=== PATIENT | female | born 1935 | race Caucasian/White ===

== ENCOUNTER 2021-10-07 09:30 | Inpatient (IN) | payer OTHER ==
[2021-10-07] MEDS ORDERED: CLINDAMYCIN 600MG PREMIX IVPB 600 MG/50 ML BAG IVPB ONE ×2 (10:22→10:46)
[2021-10-07] MEDS ORDERED: ACETAMINOPHEN 1000 MG/100 ML VIAL IVPB ONE (10:28)
[2021-10-07 10:40] LABS: HEMATOCRIT 42.1 % (32.4-45.2); HEMOGLOBIN 14.2 GM/dL (10.7-15.3); MCH 30.1 pg (25.7-33.7); MCHC 33.7 g/dl (32.0-36.0); MEAN CELL VOLUME 89.3 fl (80-96); MEAN PLT VOLUME 9.8 fl (7.5-11.1); PLATELET COUNT 213 10^3/uL (134-434); RBC 4.72 M/mm3 (3.60-5.2); WHITE BLOOD COUNT 8.6 K/mm3 (4.0-10.0)
[2021-10-07 10:44] LABS: VENOUS BASE EXCESS -2.5 mmol/L (-2-2); VENOUS O2 SATURATION 72.6 % (70-80); VENOUS PCO2 38.6 mmHg (38-52); VENOUS PH 7.378 (7.310-7.410)
[2021-10-07] MEDS ORDERED: ACETAMINOPHEN INJECTION 100 ML IVPB ONE (10:45)
[2021-10-07 10:49] LABS: INR 1.1 (0.83-1.09); PROTHROMBIN TIME (PATIENT) 12.3 SEC (9.7-13.0)
[2021-10-07 10:52] LABS: ACTIVATED PTT 27.4 SECONDS (25.2-36.5)
[2021-10-07 11:08] LABS: CALCIUM 9.7 mg/dL (8.5-10.1)
[2021-10-07 11:09] LABS: ALBUMIN 4.1 g/dl (3.4-5.0); BLOOD UREA NITROGEN 30.3 mg/dL (7-18)
[2021-10-07 11:12] LABS: CREATININE 0.9 mg/dL (0.55-1.3)
[2021-10-07] MEDS ORDERED: SODIUM CHLORIDE 0.9% 500 ML INFUS.BAG IV ONE (11:12)
[2021-10-07 11:14] LABS: BILIRUBIN,TOTAL 0.8 mg/dL (0.2-1)
[2021-10-07 11:15] LABS: TOT PROT 7.3 g/dl (6.4-8.2)
[2021-10-07 11:25] LABS: LACTIC ACID 2.4 mmol/L (0.4-2.0)
[2021-10-07] MEDS ORDERED: CEFTRIAXONE 1,000 MG in DEXTROSE 5%-WATER - 50 ML IVPB ONE (11:27)
[2021-10-07] MEDS ORDERED: CEFTRIAXONE 1 GM/50 ML BAG ONE (11:34)
[2021-10-07] MEDS ORDERED: ACETAMINOPHEN 325 MG TABLET (FP) PO PRN (11:46)
[2021-10-07 12:54] LABS: EPI CELLS 7 /uL (0-25.1); HYALINE CASTS 2 /uL (0-3.1); URINE APPEARANCE CLEAR; URINE BACTERIA 2288 /uL (0-1359); URINE BILIRUBIN NEGATIVE (NEGATIVE); URINE COLOR YELLOW; URINE GLUCOSE (UA) NEGATIVE (NEGATIVE); URINE KETONE NEGATIVE (NEGATIVE); URINE LEUK ESTERASE TRACE (NEGATIVE); URINE NITRITE POSITIVE (NEGATIVE); URINE PROTEIN TRACE (NEGATIVE); URINE RBC 7 /uL (0-23.9); URINE UROBILINOGEN 0.2 mg/dL (0.2-1.0); URINE WBC 21 /uL (0-25.8)
[2021-10-07 13:33] LABS: ANISOCYTOSIS 0; MACROCYTOSIS 0; PLATELET ESTIMATE NORMAL
[2021-10-07] MEDS ORDERED: SODIUM CHLORIDE 1,000 ML IV SCH ×2 (13:45→17:30)
[2021-10-07] MEDS ORDERED: ALBUTEROL SO4 2.5/IPRATROPIUM 0.5 INH SOL 3 ML VIAL.NEB. NEB PRN (14:03)
[2021-10-07] MEDS: ENOXAPARIN NA (PORCINE) 40 MG/0.4 ML DISP.SYRIN SQ SCH (14:11)
[2021-10-07] MEDS: methylPREDNISolone NA SUCC 40 MG/1 ML VIAL IVPUSH SCH ×2 (14:11→18:43)
[2021-10-07] MEDS: ALBUTEROL SO4 2.5/IPRATROPIUM 0.5 INH SOL 3 ML VIAL.NEB. NEB SCH ×2 (15:26→19:10)
[2021-10-07 16:31] LABS: LACTIC ACID 2.1 mmol/L (0.4-2.0)
[2021-10-07] MEDS: CLINDAMYCIN 600MG PREMIX IVPB 600 MG/50 ML BAG IVPB SCH ×2 (17:35→20:59)
[2021-10-07] MEDS: MUPIROCIN 2% TOPICAL OINTMENT FOR DECOLONIZATION NS SCH ×2 (17:36→21:07)
[2021-10-07] MEDS ORDERED: PT OWN MED DRAWER 7, Y5N ONE (20:54)
[2021-10-07] MEDS ORDERED: CHLORHEXIDINE GLUCONATE 4% CLEANSER FOR DECOLONIZATION TP SCH (22:00)
[2021-10-08] MEDS: methylPREDNISolone NA SUCC 40 MG/1 ML VIAL IVPUSH SCH ×3 (01:49→17:53)
[2021-10-08] MEDS: CLINDAMYCIN 600MG PREMIX IVPB 600 MG/50 ML BAG IVPB SCH ×4 (02:04→21:50)
[2021-10-08 07:05] LABS: BASO % 0.3 % (0-2.0); HEMATOCRIT 35.2 % (32.4-45.2); HEMOGLOBIN 11.9 GM/dL (10.7-15.3); LYMPH % 6.6 % (8-40); MCH 30.3 pg (25.7-33.7); MCHC 33.7 g/dl (32.0-36.0); MEAN CELL VOLUME 90.1 fl (80-96); MEAN PLT VOLUME 10.5 fl (7.5-11.1); MONO % 3.2 % (3.8-10.2); NEUT % 89.9 % (42.8-82.8); PLATELET COUNT 185 10^3/uL (134-434); RBC 3.91 M/mm3 (3.60-5.2); RDW 14.3 % (11.6-15.6); WHITE BLOOD COUNT 11.6 K/mm3 (4.0-10.0)
[2021-10-08 07:25] LABS: MAGNESIUM 1.6 mg/dL (1.8-2.4)
[2021-10-08 07:29] LABS: PHOSPHOROUS 2.2 mg/dL (2.5-4.9)
[2021-10-08] MEDS: ALBUTEROL SO4 2.5/IPRATROPIUM 0.5 INH SOL 3 ML VIAL.NEB. NEB SCH ×4 (08:10→20:04)
[2021-10-08 09:10] LABS: CALCIUM 8.8 mg/dL (8.5-10.1)
[2021-10-08] MEDS ORDERED: DEXTROSE 5%-WATER - 50 ML IVPB ONE (09:10)
[2021-10-08] MEDS ORDERED: cefTRIAXone SODIUM 1 GM VIAL ONE (09:10)
[2021-10-08 09:11] LABS: BLOOD UREA NITROGEN 34.2 mg/dL (7-18)
[2021-10-08] MEDS: ENOXAPARIN NA (PORCINE) 40 MG/0.4 ML DISP.SYRIN SQ SCH (09:13)
[2021-10-08] MEDS: MUPIROCIN 2% TOPICAL OINTMENT FOR DECOLONIZATION NS SCH (09:13)
[2021-10-08 09:14] LABS: CREATININE 0.9 mg/dL (0.55-1.3)
[2021-10-08 09:15] LABS: BILIRUBIN,TOTAL 0.6 mg/dL (0.2-1); TOT PROT 6.1 g/dl (6.4-8.2)
[2021-10-08 09:17] LABS: ALBUMIN 3.2 g/dl (3.4-5.0)
[2021-10-08] MEDS ORDERED: CEFTRIAXONE 1 GM in DEXTROSE 5%-WATER - 50 ML IVPB SCH (10:00)
[2021-10-08] MEDS ORDERED: SODIUM CHLORIDE 0.45% 1,000 ML IV SCH ×2 (10:15→16:48)
[2021-10-08] MEDS ORDERED: MAGNESIUM 2GM/50ML STERILE WATER IVPB IVPB ONE (11:00)
[2021-10-08] MEDS ORDERED: POTASSIUM PHOSPHATE 15 MM in SODIUM CHLORIDE 100 ML IVPB ONE (11:30)
[2021-10-08] MEDS ORDERED: ALBUTEROL SO4 2.5/IPRATROPIUM 0.5 INH SOL 3 ML VIAL.NEB. NEB PRN (16:48)
[2021-10-08] MEDS ORDERED: ACETAMINOPHEN 325 MG TABLET (FP) PO PRN (16:48)
[2021-10-08] MEDS ORDERED: MUPIROCIN 2% TOPICAL OINTMENT FOR DECOLONIZATION NS SCH (22:00)
[2021-10-08] MEDS ORDERED: CHLORHEXIDINE GLUCONATE 4% CLEANSER FOR DECOLONIZATION TP SCH (22:00)
[2021-10-09] MEDS: CLINDAMYCIN 600MG PREMIX IVPB 600 MG/50 ML BAG IVPB SCH ×4 (02:54→21:59)
[2021-10-09] MEDS: methylPREDNISolone NA SUCC 40 MG/1 ML VIAL IVPUSH SCH (02:54)
[2021-10-09] MEDS: ALBUTEROL SO4 2.5/IPRATROPIUM 0.5 INH SOL 3 ML VIAL.NEB. NEB SCH ×4 (07:55→20:10)
[2021-10-09 09:06] LABS: HEMATOCRIT 34.3 % (32.4-45.2); HEMOGLOBIN 11.5 GM/dL (10.7-15.3); MCHC 33.4 g/dl (32.0-36.0); MEAN CELL VOLUME 89.8 fl (80-96); MEAN PLT VOLUME 10.8 fl (7.5-11.1); PLATELET COUNT 198 10^3/uL (134-434); RBC 3.81 M/mm3 (3.60-5.2); RDW 14.6 % (11.6-15.6); WHITE BLOOD COUNT 13.8 K/mm3 (4.0-10.0)
[2021-10-09 09:36] LABS: CALCIUM 9.5 mg/dL (8.5-10.1)
[2021-10-09 09:37] LABS: ALBUMIN 3.1 g/dl (3.4-5.0); BLOOD UREA NITROGEN 29.6 mg/dL (7-18); MAGNESIUM 2.4 mg/dL (1.8-2.4)
[2021-10-09] MEDS ORDERED: cefTRIAXone SODIUM 1 GM VIAL ONE (09:37)
[2021-10-09] MEDS ORDERED: DEXTROSE 5%-WATER - 50 ML IVPB ONE (09:37)
[2021-10-09 09:40] LABS: CREATININE 0.7 mg/dL (0.55-1.3); PHOSPHOROUS 1.9 mg/dL (2.5-4.9)
[2021-10-09 09:41] LABS: BILIRUBIN,TOTAL 0.6 mg/dL (0.2-1); TOT PROT 6.4 g/dl (6.4-8.2)
[2021-10-09] MEDS: CEFTRIAXONE 1 GM in DEXTROSE 5%-WATER - 50 ML IVPB SCH (09:43)
[2021-10-09] MEDS: ENOXAPARIN NA (PORCINE) 40 MG/0.4 ML DISP.SYRIN SQ SCH (09:43)
[2021-10-09 10:16] LABS: ANISOCYTOSIS 1+; MACROCYTOSIS 0; PLATELET ESTIMATE NORMAL
[2021-10-09] MEDS: guaiFENesin 200 MG/10 ML 10 ML UNIT-DOSE CUPS PO PRN ×2 (11:04→21:59)
[2021-10-09] MEDS ORDERED: methylPREDNISolone NA SUCC 40 MG/1 ML VIAL IVPUSH SCH (18:30)
[2021-10-10] MEDS: CLINDAMYCIN 600MG PREMIX IVPB 600 MG/50 ML BAG IVPB SCH ×4 (03:48→21:29)
[2021-10-10] MEDS: ALBUTEROL SO4 2.5/IPRATROPIUM 0.5 INH SOL 3 ML VIAL.NEB. NEB SCH ×4 (07:20→19:27)
[2021-10-10] MEDS ORDERED: DEXTROSE 5%-WATER - 50 ML IVPB ONE (09:07)
[2021-10-10] MEDS ORDERED: cefTRIAXone SODIUM 1 GM VIAL ONE (09:07)
[2021-10-10] MEDS: ENOXAPARIN NA (PORCINE) 40 MG/0.4 ML DISP.SYRIN SQ SCH (09:17)
[2021-10-10] MEDS: HYDROCHLOROTHIAZIDE 25 MG TABLET (FP) PO SCH (09:17)
[2021-10-10] MEDS: LISINOPRIL 20 MG TABLET PO SCH (09:17)
[2021-10-10] MEDS: guaiFENesin 200 MG/10 ML 10 ML UNIT-DOSE CUPS PO PRN (09:17)
[2021-10-10] MEDS: CEFTRIAXONE 1 GM in DEXTROSE 5%-WATER - 50 ML IVPB SCH (09:33)
[2021-10-10 19:41] LABS: BASO % 0.1 % (0-2.0); EOS % 0.2 % (0-4.5); HEMOGLOBIN 10.8 GM/dL (10.7-15.3); LYMPH % 8.6 % (8-40); MCH 29.9 pg (25.7-33.7); MCHC 33.6 g/dl (32.0-36.0); MEAN CELL VOLUME 88.8 fl (80-96); MEAN PLT VOLUME 10.3 fl (7.5-11.1); MONO % 5.1 % (3.8-10.2); PLATELET COUNT 194 10^3/uL (134-434); RDW 14.3 % (11.6-15.6); WHITE BLOOD COUNT 11.3 K/mm3 (4.0-10.0)
[2021-10-10 19:58] LABS: CALCIUM 9.2 mg/dL (8.5-10.1)
[2021-10-10 19:59] LABS: ALBUMIN 2.7 g/dl (3.4-5.0); BLOOD UREA NITROGEN 16.9 mg/dL (7-18)
[2021-10-10 20:02] LABS: CREATININE 0.6 mg/dL (0.55-1.3)
[2021-10-10 20:03] LABS: BILIRUBIN,TOTAL 0.4 mg/dL (0.2-1)
[2021-10-10 20:04] LABS: TOT PROT 5.8 g/dl (6.4-8.2)
[2021-10-10 20:17] LABS: ANISOCYTOSIS 1+; MACROCYTOSIS 0; PLATELET ESTIMATE NORMAL
[2021-10-11] MEDS: CLINDAMYCIN 600MG PREMIX IVPB 600 MG/50 ML BAG IVPB SCH ×2 (02:57→10:28)
[2021-10-11] MEDS: ALBUTEROL SO4 2.5/IPRATROPIUM 0.5 INH SOL 3 ML VIAL.NEB. NEB SCH ×4 (07:20→20:10)
[2021-10-11] MEDS ORDERED: cefTRIAXone SODIUM 1 GM VIAL ONE (10:17)
[2021-10-11] MEDS ORDERED: DEXTROSE 5%-WATER - 50 ML IVPB ONE (10:17)
[2021-10-11] MEDS: LISINOPRIL 20 MG TABLET PO SCH (10:28)
[2021-10-11] MEDS: HYDROCHLOROTHIAZIDE 25 MG TABLET (FP) PO SCH (10:28)
[2021-10-11] MEDS: ENOXAPARIN NA (PORCINE) 40 MG/0.4 ML DISP.SYRIN SQ SCH (10:28)
[2021-10-11] MEDS: CEFTRIAXONE 1 GM in DEXTROSE 5%-WATER - 50 ML IVPB SCH (10:28)
[2021-10-11 18:00] LABS: HEMATOCRIT 33.5 % (32.4-45.2); HEMOGLOBIN 11.4 GM/dL (10.7-15.3); MCH 30.5 pg (25.7-33.7); MCHC 34.1 g/dl (32.0-36.0); MEAN CELL VOLUME 89.4 fl (80-96); MEAN PLT VOLUME 10.9 fl (7.5-11.1); PLATELET COUNT 213 10^3/uL (134-434); RBC 3.74 M/mm3 (3.60-5.2); RDW 13.9 % (11.6-15.6); WHITE BLOOD COUNT 9.5 K/mm3 (4.0-10.0)
[2021-10-11 18:16] LABS: CALCIUM 8.9 mg/dL (8.5-10.1)
[2021-10-11 18:17] LABS: ALBUMIN 2.6 g/dl (3.4-5.0); BLOOD UREA NITROGEN 14.7 mg/dL (7-18); MAGNESIUM 1.8 mg/dL (1.8-2.4)
[2021-10-11 18:20] LABS: CREATININE 0.6 mg/dL (0.55-1.3)
[2021-10-11 18:22] LABS: BILIRUBIN,TOTAL 0.4 mg/dL (0.2-1); TOT PROT 5.8 g/dl (6.4-8.2)
[2021-10-11 18:35] LABS: ANISOCYTOSIS 0; HELMET CELLS 0; HOWELL-JOLLY BODIES 0; MACROCYTOSIS 0; OVALOCYTE 0; PLATELET ESTIMATE NORMAL; ROULEAU 0; SICKELED CELLS 0; TARGET CELLS 0; TEAR DROP CELLS 0; TOXIC GRANULATION 0
[2021-10-12] MEDS: ALBUTEROL SO4 2.5/IPRATROPIUM 0.5 INH SOL 3 ML VIAL.NEB. NEB SCH ×4 (07:20→20:16)
[2021-10-12] MEDS ORDERED: DEXTROSE 5%-WATER - 50 ML IVPB ONE (11:11)
[2021-10-12] MEDS ORDERED: cefTRIAXone SODIUM 1 GM VIAL ONE (11:11)
[2021-10-12] MEDS: ENOXAPARIN NA (PORCINE) 40 MG/0.4 ML DISP.SYRIN SQ SCH (11:12)
[2021-10-12] MEDS: CEFTRIAXONE 1 GM in DEXTROSE 5%-WATER - 50 ML IVPB SCH (11:12)
[2021-10-12] MEDS: LISINOPRIL 20 MG TABLET PO SCH (11:12)
[2021-10-12] MEDS: HYDROCHLOROTHIAZIDE 25 MG TABLET (FP) PO SCH (11:12)
[2021-10-12] MEDS: guaiFENesin 200 MG/10 ML 10 ML UNIT-DOSE CUPS PO PRN (11:13)
[2021-10-12 14:07] LABS: HEMATOCRIT 35.5 % (32.4-45.2); HEMOGLOBIN 11.9 GM/dL (10.7-15.3); MCHC 33.7 g/dl (32.0-36.0); MEAN CELL VOLUME 89.1 fl (80-96); PLATELET COUNT 251 10^3/uL (134-434); RBC 3.98 M/mm3 (3.60-5.2); RDW 14.4 % (11.6-15.6); WHITE BLOOD COUNT 9.7 K/mm3 (4.0-10.0)
[2021-10-12 14:33] LABS: ALBUMIN 2.6 g/dl (3.4-5.0); BLOOD UREA NITROGEN 13.8 mg/dL (7-18); CALCIUM 9.3 mg/dL (8.5-10.1); MAGNESIUM 1.9 mg/dL (1.8-2.4)
[2021-10-12 14:36] LABS: CREATININE 0.8 mg/dL (0.55-1.3)
[2021-10-12 14:38] LABS: BILIRUBIN,TOTAL 0.4 mg/dL (0.2-1); TOT PROT 6.1 g/dl (6.4-8.2)
[2021-10-12 15:23] LABS: ANISOCYTOSIS 0; MACROCYTOSIS 0; PLATELET ESTIMATE NORMAL
[2021-10-12 23:59] VITALS: BMI 29.0
[2021-10-13] MEDS: ALBUTEROL SO4 2.5/IPRATROPIUM 0.5 INH SOL 3 ML VIAL.NEB. NEB SCH ×3 (08:20→15:59)
[2021-10-13 09:57] LABS: HEMATOCRIT 35.5 % (32.4-45.2); MCH 30.3 pg (25.7-33.7); MCHC 33.8 g/dl (32.0-36.0); MEAN CELL VOLUME 89.6 fl (80-96); MEAN PLT VOLUME 9.5 fl (7.5-11.1); PLATELET COUNT 263 10^3/uL (134-434); RBC 3.97 M/mm3 (3.60-5.2); RDW 13.9 % (11.6-15.6); WHITE BLOOD COUNT 7.6 K/mm3 (4.0-10.0)
[2021-10-13] MEDS ORDERED: DEXTROSE 5%-WATER - 50 ML IVPB ONE (10:10)
[2021-10-13] MEDS ORDERED: cefTRIAXone SODIUM 1 GM VIAL ONE (10:10)
[2021-10-13] MEDS: HYDROCHLOROTHIAZIDE 25 MG TABLET (FP) PO SCH (10:14)
[2021-10-13] MEDS: LISINOPRIL 20 MG TABLET PO SCH (10:14)
[2021-10-13] MEDS: CEFTRIAXONE 1 GM in DEXTROSE 5%-WATER - 50 ML IVPB SCH (10:14)
[2021-10-13] MEDS: ENOXAPARIN NA (PORCINE) 40 MG/0.4 ML DISP.SYRIN SQ SCH (10:14)
[2021-10-13 10:57] LABS: BLOOD UREA NITROGEN 13.7 mg/dL (7-18); CALCIUM 9.1 mg/dL (8.5-10.1); MAGNESIUM 1.9 mg/dL (1.8-2.4)
[2021-10-13 10:58] LABS: ALBUMIN 2.5 g/dl (3.4-5.0)
[2021-10-13 11:01] LABS: CREATININE 0.6 mg/dL (0.55-1.3)
[2021-10-13 11:02] LABS: BILIRUBIN,TOTAL 0.6 mg/dL (0.2-1)
[2021-10-13 14:36] VITALS: BP 146/65; PULSE 86; TEMP 98.6
[2021-10-14] MEDS ORDERED: MULTIVITAMINS THER W-MINERALS COMBO TABLET (FP) PO SCH (10:00)
== END 2021-10-13 17:44 | disposition home or self-care (01) | DRG 871 ==
LOC: JER 09:30 → JERBED 11:00 → JICU 13:06 → J6S 10-08 16:47
PROVIDERS: ADMIT Internal Medicine; ATTEND Nurse Practitioner Acute Care
DX: A41.9 Sepsis, unspecified organism (principal); J69.0 Pneumonitis due to inhalation of food and vomit; J96.01 Acute respiratory failure with hypoxia; E87.2 Acidosis; N39.0 Urinary tract infection, site not specified; E78.5 Hyperlipidemia, unspecified; I10 Essential (primary) hypertension
CPT/HCPCS: 36415; 71045-TC-FY; 74230-TC-FY; 80053; 81003; 82803; 82962; 83605; 83735; 84100; 84484; 85025; 85027; 85610; 85730; 87040; 87086; 87186; 92611-GN; 93005; 93010; 93970-TC; 94640; 94761; 97116-GP; 97161-GP; 99291; C9803; J0131; U0003; U0005